=== PATIENT | male | born 1990 | race Two or more races ===

== ENCOUNTER 2020-11-14 09:26 | Emergency (ER) | payer MEDICAID, OTHER ==
[~2020-11-14] VITALS: Ht 180.3 cm; Wt 99.8 kg
[2020-11-14 10:05] VITALS: BP 141/84
== END 2020-11-14 11:09 | disposition home or self-care (01) ==
LOC: ER 09:26
DX: M54.16 Radiculopathy, lumbar region (principal); F17.210 Nicotine dependence, cigarettes, uncomplicated
CPT/HCPCS: 72100

== ENCOUNTER 2020-11-29 05:43 | Emergency (ER) | payer OTHER, MEDICAID ==
[~2020-11-29] VITALS: Ht 180.3 cm; Wt 97.5 kg
[2020-11-29 05:43] VITALS: BP 135/83
[2020-11-29] MEDS ORDERED: METHOCARBAMOL 500 MG TAB PO ONE (07:45)
[2020-11-29] MEDS ORDERED: KETOROLAC TROMETH 60MG/2ML VIAL IM ONE (07:45)
== END 2020-11-29 08:21 | disposition home or self-care (01) ==
LOC: ER 05:43
DX: M54.16 Radiculopathy, lumbar region (principal); F17.210 Nicotine dependence, cigarettes, uncomplicated
CPT/HCPCS: 96372; 99283; J1885